=== PATIENT | female | born 1990 | race Caucasian/White ===

== ENCOUNTER 2017-06-16 13:18 | Outpatient (CLI) ==
[2013-08-05 21:35] VITALS: BMI 30.4
--- NOTE | 2017-06-17 09:22 | MRI ---
EXAM: MRI of the right knee without contrast COMPARISON: MRI of the right knee at [facility] 02/07/2009. HISTORY: Right knee pain and popping. TECHNIQUE: Multiplanar noncontrast MR images of the right knee were acquired using a 1.2 Thais magn et. FINDINGS: The medial and lateral menisci are intact without evidence of a surfacing meniscal tear. No parameniscal cyst. Inversion recovery hyperintense signal along the anterior cruciate ligament suggesting mucoid degene ration with intact fibers identified. The posterior cruciate ligaments intact. The medial collater al ligament, lateral collateral ligament complex and posterolateral corner ligaments are intact. Th e extensor mechanism is intact. Subcutaneous edema anteriorly without a drainable fluid collection. No abnormal subluxation of the patella. There is chondromalacia patella. No full-thickness cartilage defect. No evidence of an acute fract ure, osteomyelitis or marrow infiltrating process. IMPRESSION: 1. Intact menisci. 2. Mucoid degeneration of the anterior cruciate ligament with intact fibers identified. 3. Subcutaneous edema anteriorly. 4. Chondromalacia patella.
== END 2017-06-16 13:19 | disposition home or self-care (01) ==
LOC: RAD 13:18
PROVIDERS: ATTEND Nurse Practitioner Family
DX: M25.561 Pain in right knee (principal)

== ENCOUNTER 2017-12-16 08:30 | Outpatient (CLI) ==
[2017-12-16 09:00] VITALS: BMI 31.6
== END 2017-12-16 08:31 | disposition critical access hospital (66) ==
LOC: AMBL 08:30
PROVIDERS: ATTEND Emergency Medicine
DX: S09.90XA Unspecified injury of head, initial encounter (principal); S50.312A Abrasion of left elbow, initial encounter; S80.812A Abrasion, left lower leg, initial encounter; M25.562 Pain in left knee; M25.531 Pain in right wrist; W10.9XXA Fall (on) (from) unspecified stairs and steps, initial encounter; Y92.59 Other trade areas as the place of occurrence of the external cause

== ENCOUNTER 2017-12-16 08:44 | Emergency (ER) ==
[2017-12-16 09:00] VITALS: BP 100/60; TEMP 97.4; BMI 31.6
--- NOTE | 2017-12-16 09:10 | ED.PDOC ---
General ED Provider: Dr. KEI AYOUB Chief Complaint: Fall Stated Complaint: Fell down stairs: Patient states after missing a step she fell forward and ended up falling down 7 steps and down the flight of stairs sustaining injuries to her head and Rt Wrists, bilateral legs(lt>rt). Patient states she struck her forehead on a wall denies loss of consciousness. C/O Left knee pain, sustaining large abrasion and swelling plus sustained large scraping /abrasion to left lower leg. Patient has abrasion left elbow. c/o pain right wrist. patient has splint from ems. patient also has abrasion to right knee. patient denies neck pain Time Seen by Physician: 08:20 Mode of Arrival: Ambulance Information Source: Patient Exam Limitations: No limitations Primary Care Provider: NENA URIBE Nursing and Triage Documentation Reviewed and Agree: Yes (patient states she fell down a flight of stairs. states she missed a step a) Reviewed sepsis parameters & appropriate labs ordered?: Yes System Inflammatory Response Syndrome: Not Applicable Sepsis Protocol: For patient's 13 years and over: Temp is 96.8 and below OR 101 and greater Pulse >90 BPM Resp >20/minute Acutely Altered Mental Status Are patient's symptoms suggestive of a new infection, such as: -Pneumonia -Skin, Soft Tissue -Endocarditis -UTI -Bone, Joint Infection -Implantable Device -Acute Abdominal Infection -Wound Infection -Meningitis -Blood Stream Catheter Infection -Unknown System Inflammatory Response Syndrome: Not Applicable Trauma/Injury Complaint Exam - Trauma Complaint/Exam Location of Pain or Injury: Reports: Head, RUE, RLE Mechanism of Injury: Reports: Fall Onset/Duration: earlier this morniing Symptoms Are: Still present Timing of Treatment: Immediate Initial Severity: Moderate Current Severity: Mild Character: Reports: Aching, Burning Aggravating: Reports: Movement Alleviating: Reports: Rest Associated Signs and Symptoms: Reports: Swelling. Denies: LOC, Confusion, Memory loss, Lethargy Related History: Denies: Similar episode, Alcohol abuse, Drug abuse, Alleged assault, Anticoagulants, Occupational injury : No ([facility] end of Oct-November) EMS Interventions: Present: C-spine immobilization, Backboard applied Related Surgical History: Reports: None Compartment Syndrome Risk Factors: Present: Pain Trauma Findings: Present: Neck tenderness. Absent: [place] eyes, Hemotympanum, Nasal deformity, Dental tenderness, Dental injury Skin Findings: Present: Normal findings Differential Diagnoses: Abrasion, Contusions, Fracture, Hematoma, Sprain, Strain Review of Systems - Review Of Systems Constitutional: Reports: No symptoms Eyes: Reports: No symptoms Ears, Nose, Mouth, Throat: Reports: No symptoms Respiratory: Reports: No symptoms Cardiac: Reports: No symptoms GI: Reports: No symptoms : Reports: No symptoms Musculoskeletal: Reports: No symptoms Skin: Reports: Bruising Neurological: Reports: No symptoms, Anxiety Endocrine: Reports: No symptoms Hematologic/Lymphatic: Reports: No symptoms All Other Systems: Reviewed and Negative Past Medical History - Past Medical History Endocrine: Reports: None Cardiovascular: Reports: None Respiratory: Reports: None Hematological: Reports: None Gastrointestinal: Reports: None Genitourinary: Reports: None Neuro/Psych: Reports: None Musculoskeletal: Reports: None Cancer: Reports: None Last Menstrual Period: 10/25/17 - Surgical History General Surgical History: Reports: None - Family History Family History: Reports: Unknown - Social History Smoking Status: Current every day smoker Hx Substance Use: No Alcohol Screening: None Physical Exam - Physical Exam Appearance: Well-appearing, Obese Ill-appearing: None Pain Distress: Moderate Eyes: ESHA, EOMI, Conjunctiva clear ENT: Ears normal, Nose normal, Oropharynx normal Neck: Supple Respiratory: Airway patent, Breath sounds clear, Breath sounds equal Cardiovascular: RRR, Pulses normal, No rub, No murmur GI/: Soft, Nontender, No masses, Bowel sounds normal, No Organomegaly Musculoskeletal: Normal strength, ROM intact, No edema, No calf tenderness Skin: Warm, Dry, Normal color Psychiatric: Affect appropriate, Mood appropriate Critical Care Note - Critical Care Note Total Time (mins): 0 Course - Course Vital Signs: Temp Pulse Resp BP Pulse Ox 12/16/17 08:44 97.4 F L 76 20 100/60 98 Departure - Departure Time of Disposition: 10:05 Disposition: TSF TO PSYCH HOSP/UNIT Discharge Problem: Contusion of knee, right, Contusion of leg, left, Strain of wrist, right Condition: Fair Pt referred to PMD for follow-up: No IPMP verified?: No Additional Instructions: Advised by RN that Patient's boyfriend showed up and patient promptly removed her splint and left department et facility AMA; papers signed, using her injured Rt Hand to sign document without difficulty Allergies/Adverse Reactions: Allergies doxycycline Adverse Reaction (Verified 08/05/13 21:42) Penicillins Adverse Reaction (Verified 12/16/17 09:12) Home Medications: Ambulatory Orders Buspirone HCl 10 mg PO TID 12/16/17 Diazepam [Valium] 5 mg PO BID 12/16/17 Escitalopram Oxalate [Lexapro] 20 mg PO BID 12/16/17 Famotidine [Pepcid] 20 mg PO DAILY 12/16/17 Lurasidone HCl [Latuda] 40 mg PO DAILY 12/16/17 Disposition Discussed With: Other (left without testing or instructions.)
== END 2017-12-16 10:15 ==
LOC: ED 08:44
DX: S09.90XA Unspecified injury of head, initial encounter (principal); S80.01XA Contusion of right knee, initial encounter; S80.12XA Contusion of left lower leg, initial encounter; S66.911A Strain of unspecified muscle, fascia and tendon at wrist and hand level, right hand, initial encounter; M25.562 Pain in left knee; M54.2 Cervicalgia; F17.210 Nicotine dependence, cigarettes, uncomplicated; W10.9XXA Fall (on) (from) unspecified stairs and steps, initial encounter
CPT/HCPCS: 36415; 80053; 84703; 85025; 99284